=== PATIENT | male | born 1970 | race Caucasian/White ===

== ENCOUNTER 2021-05-16 09:47 | Emergency (ER) | payer BC, SELFPAY ==
--- NOTE | ~2021-05-16 | XR_ITS ---
EXAMINATION: XR chest 2V DATE: 05/16/2021 10:27 INDICATION: Cough TECHNIQUE: PA and lateral views of the chest are obtained. COMPARISON: None available FINDINGS: There is minimal airspace opacity of the right lung base. There is no pleural effusion or p neumothorax. The cardiomediastinal silhouette is normal. There is mild thoracic spondylosis. IMPRESSION: 1. Minimal right basilar airspace opacity, likely atelectasis versus pneumonia. Recommend followup ra diographs in 10-14 days after appropriate therapy to evaluate for improvement/resolution. Reviewed, dictated and finalized at location [facility]. [facility] IMPRESSION: 1. Minimal right basilar airspace opacity, likely atelectasis versus pneumonia. Recommend followup radiographs in 10-14 days after appropriate therapy to eval uate for improvement/resolution.
[2021-05-16 09:56] VITALS: BP 155/93; PULSE 81; RESP 20; TEMP 36.3; O2SAT 98
--- NOTE | 2021-05-16 10:18 | ED.GENADULT ---
HPI - General Adult General Chief complaint: Upper Respiratory Infection Stated complaint: cough Source: patient Mode of arrival: ambulatory Limitations: no limitations History of Present Illness HPI narrative: 51 y/o male. PMHx MDD. Presents to [facility] today with acute complaints of lingering and continued nasal congestion, semi-productive cough, 'green' nasal discharge, and 'coughing fits' for the past 3 weeks. Client had been previously seen at [facility] 2 weeks ago, had negative Covid, Influenza, & Strep testing, and was treated as OP for Bronchitis. He notes worsening manifestations despite the above treatment. Denies fever, chills. No PERALTA, focal weakness. No sore throat, otalgia, dysphagia. No chest pain, palpitations, dyspnea, edema. He denies additional known ill contacts. He is without additional acute c/o illness upon PE. Related Data Home Medications Medication Instructions Recorded Confirmed buspirone [BuSpar] 15 mg PO BID 05/16/21 05/16/21 citalopram [Celexa] 40 mg PO DAILY 05/16/21 05/16/21 Allergies Allergy/AdvReac Type Severity Reaction Status Date / Time erythromycin base Allergy Itching Verified 05/16/21 10:06 Penicillins Allergy Hives Verified 05/16/21 10:06 Review of Systems Review of Systems: CONSTITUTIONAL: Denies fever, chills, sweats. EYES: Denies visual changes, redness, discharge. ENT: Positive rhinorrhea, congestion. No sore throat, otalgia. CARDIOVASCULAR: Denies chest pain, palpitations, edema. RESPIRATORY: Denies dyspnea, wheezing. Positive cough, chest congestion. GASTROINTESTINAL: Denies abdominal pain, nausea, vomiting, diarrhea. GENITOURINARY: Denies dysuria, hematuria, abnormal discharge SKIN: Denies rash or itching. MUSCULOSKELETAL: Denies acute back pain, joint pain, or myalgia. NEUROLOGIC: Denies numbness, or focal weakness. PSYCHIATRIC: Denies anxiety or depression. All systems reviewed & are unremarkable except as noted in HPI and below Exam Narrative: GENERAL: This is a well-nourished, well-developed adult, in no apparent distress. HEAD: normocephalic, atraumatic. EYES: PERRL. Sclera clear/white. EARS: External ears normal, auditory canals clear and without drainage, TMs normal. NOSE: External nose normal. Positive Rhinorrhea, purulent nasal discharge, no obstruction, nares patent. THROAT: Mucous membranes moist, posterior pharynx erythematous. No exudates. NECK: Neck supple, non-tender without lymphadenopathy, masses or thyromegaly. CARDIOVASCULAR: Regular rate and rhythm without murmurs, gallops, or rubs. RESPIRATORY: Upper airway Rhonchi, mostly cleared with cough. Breath sounds equal bilaterally. No wheezes, rales, or distress. GASTROINTESTINAL: Abdomen soft, non-tender, nondistended. Bowel sounds are active. No guarding. SKIN: warm, intact with no suspicious lesions or rash, good texture and turgor. NEURO: Alert, active, and age appropriate. No focal neurologic deficits. Course Vital Signs Vital signs: Vital Signs Temperature 36.3 C L 05/16/21 09:56 Pulse Rate 81 05/16/21 09:56 Respiratory Rate 20 05/16/21 09:56 Blood Pressure 155/93 H 05/16/21 09:56 Pulse Oximetry 98 05/16/21 09:56 Temperature 36.3 C L 05/16/21 09:56 Pulse Rate 81 05/16/21 09:56 Respiratory Rate 20 05/16/21 09:56 Blood Pressure 155/93 H 05/16/21 09:56 Pulse Oximetry 98 05/16/21 09:56 The patient has been informed that they may have pre-hypertension or Hypertension based on a BP reading in the clinic. It is recommended that the patient call the primary care provider listed on their discharge instructions or a physician of their choice as soon as possible (within 1-2week) to arrange follow up for further evaluation of possible pre-hypertension or hypertension. Medical Decision Making MDM Narrative Medical decision making narrative: -Afebrile, non-tachycardic, and no hypoxemia or distress. -Plain film chest imaging reveals minimal right basila
== END 2021-05-16 10:47 | disposition home or self-care (01) ==
PROVIDERS: Emergency Provider Nurse Practitioner Adult Health
DX: J40 Bronchitis, not specified as acute or chronic (principal); J06.9 Acute upper respiratory infection, unspecified
CPT/HCPCS: 71046; 99213; G0463

== ENCOUNTER → 2021-06-02 10:14 | Outpatient (CLI) | payer BC, SELFPAY ==
--- NOTE | ~2021-06-02 | XR_ITS ---
EXAMINATION: XR chest 2V 06/02/2021 10:26 INDICATION: History of pneumonia PROCEDURE: 2 view chest COMPARISON: 05/16/2021 FINDINGS: The lungs are clear. The cardiomediastinal silhouette is within normal limits. There are no pleural effusions. There is no pneumothorax suspected. IMPRESSION: 1: NO ACUTE CARDIOPULMONARY DISEASE. Reviewed, dictated and finalized at location [facility]
== END ==
PROVIDERS: PCP Emergency Medicine; Visit Provider Emergency Medicine
DX: J18.9 Pneumonia, unspecified organism (principal)
CPT/HCPCS: 71046

== ENCOUNTER 2021-09-24 14:16 | Emergency (ER) | payer BC, SELFPAY ==
[2021-09-24 14:21] VITALS: BP 142/88; PULSE 74; RESP 14; TEMP 36.1; O2SAT 97
--- NOTE | 2021-09-24 14:36 | ED.EAR ---
HPI - Ear Problem General Chief complaint: Ear Stated complaint: Ear Pain Time Seen by Provider: 09/24/21 14:36 Source: patient Mode of arrival: ambulatory Limitations: no limitations History of Present Illness HPI Narrative: 51-year-old male presented for complaint of left ear feeling clogged for about 3 days. He states there is no pain but sounds are muffled. No previous occurrence. He denies any pain, tinnitus, headache, sinus congestion. Has not taken anything for symptoms. MD Complaint: ear pain Related Data Home Medications Medication Instructions Recorded Confirmed buspirone [BuSpar] 15 mg PO BID 05/16/21 09/24/21 citalopram [Celexa] 40 mg PO DAILY 05/16/21 09/24/21 Allergies Allergy/AdvReac Type Severity Reaction Status Date / Time erythromycin base Allergy Itching Verified 09/24/21 14:25 Penicillins Allergy Hives Verified 09/24/21 14:25 Review of Systems Review of Systems: CONSTITUTIONAL: Denies malaise, chills, or fever. EYES: Denies visual changes, redness, or discharge. ENT: Denies rhinorrhea, congestion, sinus pain, and sore throat. Reports clogged ear CARDIOVASCULAR: Denies chest pain, palpitations, or edema. RESPIRATORY: Denies cough or dyspnea. GASTROINTESTINAL: Denies abdominal pain, nausea, vomiting, diarrhea SKIN: Denies rash or itching. MUSCULOSKELETAL: Denies myalgia. NEUROLOGIC: Denies headache. All systems reviewed & are unremarkable except as noted in HPI and below PMFSH Comments At time of signature, agree with nursing past medical, surgical, social and family history. There is no relevant family history pertinent to the presenting complaint Exam Narrative: GENERAL: Well-appearing. HEAD: Normocephalic EYES: conjunctivae clear ENT: Nares clear. Mucous membranes moist. TMs unable to visualize bilat due to cerumen; left canal with dried cerumen impaction, no tragal tenderness. Oropharynx not erythematous without lesions. NECK: Supple. No lymphadenopathy CHEST: Clear to auscultation, breath sounds equal. No wheezing, rhonchi, rales, or stridor. No respiratory distress, speaks in full sentences. HEART: Regular rate and rhythm. No murmur heard. SKIN: Warm, dry, no rash. NEURO: Alert and oriented x3. PSYCH: Normal mood and affect Course Course Emergency Course: Patient is aware of diagnosis, understands and agrees to treatment plan. Anticipatory guidance given. Patient agrees to follow-up as directed and is aware of reasons to seek care at the emergency department. Portions of this record may have been created with voice recognition software Level of Care: Express Care Visit Vital Signs Vital signs: Vital Signs Temperature 97 F L 09/24/21 14:21 Pulse Rate 74 09/24/21 14:21 Respiratory Rate 14 09/24/21 14:21 Blood Pressure 142/88 H 09/24/21 14:21 Pulse Oximetry 97 09/24/21 14:21 Temperature 97 F L 09/24/21 14:21 Pulse Rate 74 09/24/21 14:21 Respiratory Rate 14 09/24/21 14:21 Blood Pressure 142/88 H 09/24/21 14:21 Pulse Oximetry 97 09/24/21 14:21 Reviewed Procedures Ear Wax Removal Left Ear: Ear Wax Removal Date: 09/24/21 Cerumenolytic Used: other (warm water, hydrogen peroxide) Results: Re-examined: some cerumen remains Ear Canal Exam: atraumatic Patient Tolerated Procedure: no complications Complications: no problems Technique: ear canal irrigated and ear canal curetted Additional Comments: Unable to remove cerumen against TM, he states muffled sound is improved but not resolved. Medical Decision Making MDM Narrative Medical decision making narrative: Exam findings show left ear cerumen impaction, attempted to remove, some cerumen remains; patient is non-toxic appearing and is in no distress. Patient is appropriate for outpatient treatment and follow-up. Differential Diagnosis Differential Diagnosis: Differential diagnosis considered: Coronavirus, strep pharyngitis, allergic rhinitis, upp
== END 2021-09-24 15:15 | disposition home or self-care (01) ==
PROVIDERS: Emergency Provider Nurse Practitioner Family; PCP Emergency Medicine
DX: H61.22 Impacted cerumen, left ear (principal); F41.9 Anxiety disorder, unspecified; F32.A Depression, unspecified
CPT/HCPCS: 69210; 99212; G0463